=== PATIENT | female | born 1985 | race Hispanic/Latino ===

== ENCOUNTER 2017-10-27 22:18 | Emergency (ER) | payer SELFPAY ==
[2017-10-27 22:44] LABS: Bilirubin Small (Negative); Blood, Urine Moderate (Negative); Clarity Slightly Cloudy (Clear); Glucose, Urine (Dipstick) Negative (Negative); Leukocyte Trace (Negative); Nitrite Negative (Negative); Protein, Urine (Dipstick) 100 mg/dL (Neg-Trace); Specific Gravity, Urine 1.025 (1.002-1.036); Urobilinogen 0.2 mg/dL (0.2-1.0)
[2017-10-27 22:54] LABS: Bacteria/HPF 3+ HPF (None Seen); Hyaline Casts/LPF NONE SEEN LPF (0-3 Hyaline); Squamous Epithelial 0-3 HPF (0-3)
[2017-10-27 23:12] LABS: Pregnancy Test - Urine (BHCG) Negative (Negative); Pregu Control Background? CLEAR/WHITE (CLR/WHITE); Pregu Control Bar Appear? YES (CONTROL BAR); Specific Gravity 1.025 (1.002-1.036)
[2017-10-27 23:39] LABS: #Basophils 0.1 thou/uL (0.0-0.2); #Eosinphils 0.1 thou/uL (0.0-0.7); #Lymphocytes 2.1 thou/uL (1.20-3.40); #Monocytes 0.7 thou/uL (0.11-0.59); #Neutrophils 7.7 thou/uL (1.40-6.50); %Basophils 0.5 % (0.0-1.0); %Lymphocytes 19.8 % (21.0-51.0); %Monocytes 6.4 % (0.0-10.0); %Neutrophils 72.3 % (42.0-75.0); Hemoglobin 14.3 g/dL (12.0-16.0); Mean Corpuscular HGB CONC 35.8 g/dL (32.0-36.0); Mean Corpuscular Hemoglobin 30.8 pg (27.0-31.0); Mean Corpuscular Volume 85.9 fL (78.0-98.0); Mean Platelet Volume 7.6 fL (7.4-10.4); Platelet Count 318 thou/uL (130-400); RBC Distribution Width 10.1 % (11.5-14.5); Red Blood Cell (RBC) Count 4.66 mill/uL (4.20-5.40); White Blood Cell (WBC) Count 10.7 thou/uL (4.8-10.8)
[2017-10-27 23:50] LABS: ALT (SGPT) 29 U/L (8-55); AST (SGOT) 28 U/L (5-34); Albumin 4.3 g/dL (3.5-5.0); Alkaline Phosphatase 69 U/L (40-150); Anion Gap 13 mmol/L (10-20); BUN (Urea Nitrogen) 8 mg/dL (7.0-18.7); Bilirubin, Total 0.7 mg/dL (0.2-1.2); Calc. Creatinine Clearance 0 mL/min (70-130); Calcium 9.6 mg/dL (7.8-10.44); Carbon Dioxide 23 mmol/L (22-29); Chloride 106 mmol/L (98-107); Estimated GFR-MDRD Greater than 90; Globulin 3.1 g/dL (2.4-3.5); Glucose 97 mg/dL (70-105); Lipase 337 U/L (8-78); Potassium 3.3 mmol/L (3.5-5.1); Protein, Total 7.4 g/dL (6.0-8.3); Sodium 139 mmol/L (136-145)
[2017-10-28] MEDS ORDERED: Ondansetron HCl/PF 4 MG/2 ML Vial ONE (00:41)
[2017-10-28] MEDS ORDERED: Morphine 4 MG/ML VIAL ONE (00:41)
[2017-10-28] MEDS ORDERED: cefTRIAXone\\ROCEPHIN 1 GM VIAL ONE (01:16)
[2017-10-28] MEDS ORDERED: Sodium Chloride 0.9% 100 ML ONE (01:18)
--- NOTE | 2017-10-28 10:03 | ULT ---
PRELIMINARY REPORT/[facility]/EMERGENCY AFTER HOURS PROCEDURE: EXAM: US Abdomen Limited, Right Upper Quadrant EXAM DATE/TIME: 10/28/2017 12:09 AM CLINICAL HISTORY: Pain; Other: Ruq pain, elevated lipase TECHNIQUE: Real-time ultrasound of the right upper quadrant with image documentation. COMPARISON: No relevant prior studies available. FINDINGS: Liver: The liver is echogenic compatible with steatosis. There is a slightly hypoechoic mass on the r ight measuring 1.8 x 1.6 x 1.4 cm. No intrahepatic bile duct dilation. Gallbladder: No gallstones, gallbladder wall thickening or pericholecystic fluid. Ultrasound technolo gist noted a sonographic positive Garcia's sign. Common bile duct: Unremarkable as visualized. No stones. No dilation. Pancreas: Unremarkable as visualized. Right kidney: Unremarkable. No stones. No solid mass. No hydronephrosis. IMPRESSION: 1. No sonographic evidence of cholelithiasis or acute cholecystitis. 2. Nonspecific right hepatic mass. ---We are pleased to participate in the care of your patient.--- Thank you for allowing us to participate in the care of your patient. Dictated and Authenticated by: Ileana Telles MD 10/28/2017 12:54 AM Central Time ([place] & [place]) FINAL REPORT RIGHT UPPER QUADRANT ULTRASOUND: Date: 10/28/17 COMPARISON: None. FINDINGS: I agree with the preliminary report provided by Jose. There is some increased echogenicity of the miky er consistent with fatty infiltration. There is an isoechoic mass within the right hepatic lobe measu ring up to 1.8 cm. No additional abnormality is demonstrated. IMPRESSION: I agree with the preliminary report provided. 1. No definite acute abnormality is seen. 2. Fatty infiltration of the liver. 3. Right hepatic lobe mass. This is slightly isoechoic. Differential considerations include FNH, hem angioma or small adenoma. Follow-up MRI of the abdomen with and without protocol utilizing hemangioma protocol is recommended. POS: DAPHNIE
== END 2017-10-28 01:48 | disposition home or self-care (01) ==
LOC: SCSER 22:18
DX: N30.00 Acute cystitis without hematuria (principal); F17.210 Nicotine dependence, cigarettes, uncomplicated
CPT/HCPCS: 76705; 80053; 81003; 81015; 81025; 83690; 85025; 87077; 87086; 96361; 96365; 96375; J0696; J2270; J2405; J7050

== ENCOUNTER 2018-11-26 20:02 | Emergency (ER) | payer SELFPAY ==
[2018-11-26 20:41] LABS: #Basophils 0.1 thou/uL (0.0-0.2); #Eosinphils 0.1 thou/uL (0.0-0.7); #Lymphocytes 1.7 thou/uL (1.20-3.40); #Monocytes 0.8 thou/uL (0.11-0.59); #Neutrophils 6.5 thou/uL (1.40-6.50); %Basophils 0.9 % (0.0-1.0); %Eosinophils 1.4 % (0.0-10.0); %Lymphocytes 18.9 % (21.0-51.0); %Monocytes 8.2 % (0.0-10.0); %Neutrophils 70.5 % (42.0-75.0); Mean Corpuscular HGB CONC 34.4 g/dL (32.0-36.0); Mean Corpuscular Hemoglobin 30.5 pg (27.0-31.0); Mean Corpuscular Volume 88.7 fL (78.0-98.0); Mean Platelet Volume 7.4 fL (7.4-10.4); Platelet Count 320 thou/uL (130-400); RBC Distribution Width 11.7 % (11.5-14.5); Red Blood Cell (RBC) Count 5.26 mill/uL (4.20-5.40); White Blood Cell (WBC) Count 9.2 thou/uL (4.8-10.8)
[2018-11-26] MEDS ORDERED: Fentanyl 100 MCG/2 ML VIAL ONE (20:43)
[2018-11-26] MEDS ORDERED: Ondansetron PF 4 MG/2 ML Vial ONE (20:43)
[2018-11-26 20:51] LABS: BHCG - Serum Negative (NEGATIVE); Pregs Control Background? CLEAR/WHITE (CLR/WHITE); Pregs Control Bar Appear? YES (CONTROL BAR)
[2018-11-26 20:57] LABS: ALT (SGPT) 61 U/L (8-55); AST (SGOT) 34 U/L (5-34); Albumin 4.4 g/dL (3.5-5.0); Alkaline Phosphatase 83 U/L (40-110); Anion Gap 16 mmol/L (10-20); BUN (Urea Nitrogen) 7 mg/dL (7.0-18.7); Bilirubin, Total 0.5 mg/dL (0.2-1.2); Calc. Creatinine Clearance 0 mL/min (70-130); Carbon Dioxide 25 mmol/L (22-29); Chloride 102 mmol/L (98-107); Estimated GFR-MDRD 69; Globulin 3.3 g/dL (2.4-3.5); Glucose 122 mg/dL (70-105); Lipase 87 U/L (8-78); Potassium 3.8 mmol/L (3.5-5.1); Protein, Total 7.7 g/dL (6.0-8.3); Sodium 139 mmol/L (136-145)
[2018-11-26 20:58] LABS: Bilirubin Negative (Negative); Blood, Urine Moderate (Negative); Clarity Clear (Clear); Glucose, Urine (Dipstick) Negative (Negative); Leukocyte Trace (Negative); Nitrite Negative (Negative); Protein, Urine (Dipstick) Trace mg/dL (Neg-Trace); Urobilinogen 0.2 mg/dL (Less than 2)
[2018-11-26 21:01] LABS: Bacteria/HPF Rare-Few HPF (None Seen); Transitional Epithelial 0-3 HPF (None Seen)
[2018-11-26] MEDS ORDERED: Morphine 4 MG/ML VIAL ONE (22:45)
--- NOTE | 2018-11-26 22:53 | ULT ---
ULTRASOUND ABDOMEN LIMITED: (RIGHT UPPER QUADRANT) DATE: 11/26/2018 HISTORY: 33-year-old female with right upper quadrant abdominal pain FINDINGS: Gallbladder:Mildly contracted. Approximately 2 mm gallbladder polyp. No gallstone identified. No mura l thickening or pericholecystic fluid. Common duct: 3 mm. Liver:Diffusely heterogeneous echotexture and echogenicity suggestive of fatty liver. In the right lo be, there is an irregularly shaped, approximately 2 x 1.5 x 1.5 cm lesion with mixed echogenicity. Pancreas:Nonspecific sonographic appearance. Right kidney:No hydronephrosis. IMPRESSION: 1) evidence for hepatic steatosis. 2) a 2 cm mass in the right lobe of the liver. Recommend further evaluation with MRI of the abdomen, with and without contrast, liver mass protocol. 3) no evidence of cholelithiasis or acute cholecystitis. 4) tiny gallbladder polyp.
--- NOTE | 2018-11-27 00:22 | CT ---
CT ABDOMEN WITH CONTRAST CT PELVIS WITH CONTRAST: DATE: 11/27/2018 HISTORY: 33 year old female with right upper quadrant abdominal pain COMPARISON: None available TECHNIQUE: IV injection of iodinated contrast media: administered. Oral contrast media:Not administered FINDINGS: There is a heterogeneous, patchy low attenuation in the left and right lobes of the liver consistent with fatty liver. In hepatic segment 5 of the right lobe, there is an approximately 2 x 2 x 1.7 cm heterogeneously enhancing solid mass. This includes a strong peripheral irregular enhancement. This i s probably a hemangioma, but that is not absolutely certain. There is no intrahepatic biliary ductal dilation. No portal vein thrombosis. The kidneys, abdominal aorta, adrenals, pancreas, spleen, appendix, and urinary bladder, are essentially normal. No evidence of colonic diverticulitis. No small bowel dilation. No pneumoperitoneum or ascites. No pericholecystic edema or fluid. Lung bases a re grossly clear. No pleural effusion. IMPRESSION: 1) hepatic steatosis. 2) solid, heterogeneously enhancing 2 cm mass in the right lobe of liver. Uncertain whether this is a hepatic hemangioma or some other type of neoplasm. As stated in the report of the gallbladder ultrasound today, a multiphase MRI of the abdomen with and without contrast, liver mass protocol, is recommended, on an elective basis.
[2018-11-27] MEDS ORDERED: Ketorolac Tromethamine 30 MG/ML VIAL ONE (00:33)
== END 2018-11-27 00:46 | disposition home or self-care (01) ==
LOC: SCSER 20:02
DX: K76.0 Fatty (change of) liver, not elsewhere classified (principal); R16.0 Hepatomegaly, not elsewhere classified; K85.90 Acute pancreatitis without necrosis or infection, unspecified; F17.210 Nicotine dependence, cigarettes, uncomplicated
CPT/HCPCS: 74177; 76705; 80053; 81003; 81015; 83690; 84703; 85025; 96361; 96374; 96375; J1885; J2270; J2405; J3010

== ENCOUNTER 2019-12-31 05:51 | Inpatient (IN) | payer OTHER ==
[2019-12-31 06:22] VITALS: BMI 27.4
[2019-12-31] MEDS ORDERED: Butorphanol Tartrate 1 MG/ML VIAL SLOW IVP PRN (06:26)
[2019-12-31] MEDS ORDERED: Ondansetron PF 4 MG/2 ML Vial IVP PRN ×2 (06:26→08:58)
[2019-12-31] MEDS ORDERED: hydrALAZINE 20 MG/ML VIAL SLOW IVP PRN ×2 (06:26→10:35)
[2019-12-31] MEDS ORDERED: Bicitra 30 ML UDCUP PO SCH (06:30)
[2019-12-31] MEDS ORDERED: CEFAZOLIN 2 GM in Premix Bag 1 BAG IVPB SCH (06:30)
[2019-12-31 06:50] LABS: Hemoglobin 14.1 g/dL (12.0-16.0); Mean Corpuscular HGB CONC 35.5 g/dL (32.0-36.0); Mean Corpuscular Hemoglobin 31.3 pg (27.0-31.0); Mean Corpuscular Volume 88.4 fL (78.0-98.0); Mean Platelet Volume 8.5 fL (7.4-10.4); Platelet Count 262 thou/uL (130-400); RBC Distribution Width 12.2 % (11.5-14.5); White Blood Cell (WBC) Count 9.4 thou/uL (4.8-10.8)
[2019-12-31] MEDS ORDERED: Oxytocin 10 UNITS/ML VIAL ONE (07:14)
[2019-12-31] MEDS ORDERED: Ondansetron PF 4 MG/2 ML Vial ONE (07:14)
[2019-12-31] MEDS ORDERED: ePHEDrine 50 MG/ML VIAL ONE (07:14)
[2019-12-31] MEDS ORDERED: Morphine PF 10 MG/10 ML VIAL ONE (07:15)
[2019-12-31 07:28] LABS: Amphetamine Not Detected (NotDetected); Barbiturates Screen Not Detected (NotDetected); Benzodiazepine Screen Not Detected (NotDetected); Cocaine Metabolite Screen Detected (NotDetected); Medtox Control Line Valid? VALID (VALID); Medtox Reader # READER 1; Methadone Not Detected (NotDetected); Methamphetamine Not Detected (NotDetected); Opiate Screen Not Detected (NotDetected); Oxycodone Screen Not Detected (NotDetected); Phencyclidine (PCP) Not Detected (NotDetected); THC/Cannabinoid Screen Not Detected (NotDetected); Tricyclic Screen Not Detected (NotDetected)
[2019-12-31 07:29] LABS: HBSAg Index 0.12 S/CO (0-0.99); Hep B Surf Ag Non-Reactive S/CO (NonReactive); Syphilis Antibody Nonreactive (Nonreactive); Syphilis Antibody Index 0.03 S/CO (<1.00 Non-Reactive)
[2019-12-31] MEDS ORDERED: Azithromycin 500 MG VIAL ONE (07:44)
[2019-12-31] MEDS ORDERED: Midazolam HCl 2 mg/2 ml Vial ONE (08:34)
[2019-12-31] MEDS ORDERED: Naloxone HCl 0.4 mg/ml Vial IVP PRN ×2 (08:58)
[2019-12-31] MEDS ORDERED: Ondansetron HCl/PF 4 MG/2 ML Vial IVP PRN (08:58)
[2019-12-31] MEDS ORDERED: Naloxone HCl 0.4 mg/ml Vial IV PRN (08:58)
[2019-12-31] MEDS ORDERED: Promethazine HCl 25 MG/ML VIAL SLOW IVP PRN (08:58)
[2019-12-31] MEDS ORDERED: diphenhydrAMINE 50 MG/ML VIAL IVP PRN (08:58)
[2019-12-31] MEDS ORDERED: Promethazine HCl 25 MG SUPP PR PRN (08:58)
[2019-12-31] MEDS ORDERED: Promethazine HCl 25 MG/ML VIAL IM PRN ×2 (08:58)
[2019-12-31] MEDS ORDERED: Communication Order-Pharmacy FS SCH (09:00)
[2019-12-31] MEDS ORDERED: Ketorolac Tromethamine 30 MG/ML VIAL ONE ×2 (10:30)
[2019-12-31] MEDS: Ketorolac Tromethamine 30 MG/ML VIAL IVP PRN ×3 (10:34→21:42)
[2019-12-31] MEDS ORDERED: Measles/Mumps/Rubella 10 MCG/0.5 ML VIAL SC ONE (10:35)
[2019-12-31] MEDS ORDERED: diphenhydrAMINE 25 MG CAP PO PRN (10:35)
[2019-12-31] MEDS ORDERED: Varicella virus, LIVE 0.5 ML VIAL SC ONE (10:35)
[2019-12-31] MEDS ORDERED: Adacel (T-DAP) 0.5 ML SYRINGE IM ONE (10:35)
[2019-12-31] MEDS ORDERED: Lanolin Ointment 7 GM TUBE TOP PRN (10:35)
[2019-12-31 12:17] LABS: SARS-CoV-2 MS2 Positive; SARS-CoV-2 N Gene Negative; SARS-CoV-2 S Gene Negative; SARS-CoV-2 by NAA Not Detected (NotDetected); SARS-CoV-2 orf1ab Negative
[2019-12-31] MEDS: Ibuprofen 800 MG TAB PO SCH ×2 (13:26→22:28)
[2019-12-31] MEDS ORDERED: NS / Oxytocin 40 units/1000ml 1,000 ML IV PRN (15:24)
[2019-12-31] MEDS ORDERED: Lidocaine 1% (PF) 30 ML VIAL SC PRN (15:24)
[2019-12-31] MEDS ORDERED: Misoprostol 100 MCG TAB VAG SCH (16:00)
[2019-12-31] MEDS: Docusate Calcium (SURFAK) 240 MG CAP PO SCH (20:23)
[2019-12-31] MEDS: HYDROcodone/Acetaminophen 5/325 mg Tablet PO PRN (20:23)
[2020-01-01] MEDS: HYDROcodone/Acetaminophen 5/325 mg Tablet PO PRN ×2 (05:00→11:09)
[2020-01-01] MEDS: Ibuprofen 800 MG TAB PO SCH ×3 (05:00→22:08)
[2020-01-01 06:09] LABS: Hemoglobin 10.7 g/dL (12.0-16.0); Mean Corpuscular HGB CONC 34.4 g/dL (32.0-36.0); Mean Corpuscular Hemoglobin 31.1 pg (27.0-31.0); Mean Corpuscular Volume 90.3 fL (78.0-98.0); Mean Platelet Volume 8.4 fL (7.4-10.4); Platelet Count 186 thou/uL (130-400); RBC Distribution Width 12.3 % (11.5-14.5); Red Blood Cell (RBC) Count 3.45 mill/uL (4.20-5.40)
[2020-01-01] MEDS: Prenatal Vitamin 1 TAB PO SCH (11:09)
[2020-01-01] MEDS: Docusate Calcium (SURFAK) 240 MG CAP PO SCH ×2 (11:10→22:08)
[2020-01-01] MEDS: Simethicone Chewable 80 MG TAB PO PRN (11:10)
[2020-01-02] MEDS: HYDROcodone/Acetaminophen 5/325 mg Tablet PO PRN ×2 (02:03→08:04)
[2020-01-02] MEDS: Ibuprofen 800 MG TAB PO SCH ×3 (05:07→21:43)
[2020-01-02] MEDS: Simethicone Chewable 80 MG TAB PO PRN (08:03)
[2020-01-02] MEDS: Prenatal Vitamin 1 TAB PO SCH (08:05)
[2020-01-02] MEDS: Docusate Calcium (SURFAK) 240 MG CAP PO SCH ×2 (08:05→21:43)
--- NOTE | 2020-01-02 14:04 | PDOC.PP ---
Post Progress Note Post Day #: 1 PO intake tolerated: yes Flatus: yes Ambulation: yes Vital Signs (12 hours) Temp Pulse Resp BP Pulse Ox 01/02/20 07:45 98.0 F 80 20 97/58 L 97 01/02/20 05:24 97.8 F 87 18 120/71 Weight Weight 150 lb - Physical Examination General: NAD Cardiovascular: no m/r/g, RRR Respiratory: clear to auscultation bilaterally, non-labored breathing Abdominal: + bowel sounds, lochia, no distention Extremities: negative homans (B) Skin: CS incision dry & intact, no rash Neurological: no gross focal deficits Psychiatric: A&Ox3, normal affect Result Diagrams: 01/01/20 05:35 Additional Labs: Post Labs Hep Bs Antigen Non-Reactive S/CO (NonReactive) 12/31/19 06:31 Blood Type O POSITIVE 12/31/19 07:29
--- NOTE | 2020-01-02 14:47 | PDOC.LDHP ---
Labor and Delivery H&P HPI: 34 y/o at 38 weeks 0 days, presents with SROM, and hx of 2 previous C- sections. Patient appeared unusually anxious on arrival, UDS was positive for Cocaine. Current gestational age (weeks): 38 Due date: 01/14/20 Grav: 4 Para: 2 Abnormal US findings: No Current medications: pre- vitamins Previous surgical history: low tranverse CS Allergies/Adverse Reactions: Allergies Allergy/AdvReac Type Severity Reaction Status Date / Time No Known Allergies Allergy Verified 12/31/19 06:14 Social history: drug use - Physical Exam Vital signs reviewed and normal: yes General: NAD, resting Heart: RRR Lungs: CTAB Abdomen: gravid Extremeties: no edema FHT: category 1 - Assessment L&D Assessment: term rupture in membranes - Plan Plan: admit to L&D, to OR for section
--- NOTE | 2020-01-02 20:00 | PDOC.PP ---
Post Progress Note Post Day #: 2 PO intake tolerated: yes Flatus: yes Ambulation: yes Vital Signs (12 hours) Temp Pulse Resp BP Pulse Ox 01/02/20 17:03 98.9 F 73 12 100/50 L 98 Weight Weight 150 lb - Physical Examination General: NAD Cardiovascular: no m/r/g, RRR Respiratory: clear to auscultation bilaterally, non-labored breathing Abdominal: + bowel sounds, lochia, no distention Extremities: negative homans (B) Skin: CS incision dry & intact, no rash Neurological: no gross focal deficits Psychiatric: A&Ox3, normal affect Result Diagrams: 01/01/20 05:35 Additional Labs: Post Labs Hep Bs Antigen Non-Reactive S/CO (NonReactive) 12/31/19 06:31 Blood Type O POSITIVE 12/31/19 07:29
--- NOTE | 2020-01-03 00:34 | OP ---
DATE OF PROCEDURE: 12/31/2019 TIME OF SERVICE: At 8:16 [place] daylight savings time. PREOPERATIVE DIAGNOSES: Intrauterine at 38 weeks and 0 days with a spontaneous rupture of membranes, history of 2 previous sections, and admission drug screen positive for cocaine. POSTOPERATIVE DIAGNOSES: Intrauterine at 38 weeks and 0 days with a spontaneous rupture of membranes, history of 2 previous sections, and admission drug screen positive for cocaine. PROCEDURE: Repeat low transverse section. FINDINGS: Viable female infant, weighing 2359 g or 5 pounds 3 ounces, Apgars 8 and 9. QUANTITATIVE BLOOD LOSS: 340 mL. COMPLICATIONS: None. DETAILS OF THE PROCEDURE: After obtaining consent, the patient was taken back to the operating room where her regional anesthesia was found to be adequate. The patient was placed in the dorsal supine position with leftward tilt. The skin was tested for adequate anesthesia and a scalpel was then used to make a Pfannenstiel incision which was carried down to the underlying rectus fascia. The fascia was incised in the midline and the fascial incision extended in both lateral directions. 2 Osmani clamps were placed at the superior aspect of the fascia and the rectus muscles were dissected away. Similarly, 2 Osmani clamps were placed at the inferior aspect of the incision and rectus muscles dissected away. The rectus muscles were then in the midline and the peritoneum identified and entered bluntly with the hemostat. The peritoneal incision was then extended superiorly and inferiorly. A bladder blade was then placed within the peritoneal cavity and a bladder flap was made with Metzenbaum scissors and pickups with teeth. The bladder blade was replaced. A clean scalpel was used to make a uterine incision. The baby was then delivered with gentle fundal pressure without difficulty. The baby's mouth and nose were bulb suctioned and the cord clamped and cut. The baby was then handed to waiting attendants. Cord blood and cord gases were obtained. The placenta was manually extracted. The uterus exteriorized, cleared of all clots and debris, and repaired with #1 chromic suture in a running, locked fashion. Hemostasis at the uterine wall was excellent. The bladder flap was repaired with 2-0 Monocryl in a running fashion. The tubes and ovaries were inspected and appeared normal. The posterior cul-de-sac was blotted dry and the uterus was replaced within the abdomen. Again, the uterus was firm, and hemostasis was excellent at the uterine repair. Peritoneum was closed with 2-0 chromic suture in a running fashion. Fascia was reapproximated with 0 Vicryl, using 2 running sutures tied in the midline. The subcutaneous tissue was irrigated. Hemostasis was assured and the skin closed with 3-0 Monocryl and Dermabond adhesive. The patient was then transferred to the ambulatory bed and taken to recovery in stable condition. Job ID: [id number]
[2020-01-03] MEDS: Ibuprofen 800 MG TAB PO SCH (05:55)
[2020-01-03 08:17] VITALS: BP 100/58; TEMP 98
== END 2020-01-03 09:15 | disposition home or self-care (01) | DRG 787 ==
LOC: L&D/OP 05:51 → L&D 07:28 → 3SW 11:04
PROVIDERS: ADMIT Obstetrics & Gynecology; ATTEND Obstetrics & Gynecology
PROC: 10D00Z2 Extraction of Products of Conception, Extraperitoneal, Open Approach (ICD-10-PCS; principal; 2019-12-31)
DX: O34.219 Maternal care for unspecified type scar from previous cesarean delivery (principal); O99.324 Drug use complicating childbirth; Z3A.38 38 weeks gestation of pregnancy; Z37.0 Single live birth; F14.90 Cocaine use, unspecified, uncomplicated; Z20.828 Contact with and (suspected) exposure to other viral communicable diseases
CPT/HCPCS: 36415; 51702; 80306; 85027; 86780; 86850; 86900; 86901; 87340; 87635; 90715; 99285; J0456; J0690; J1885; J2250; J2270; J2405; J3490; U0003

== ENCOUNTER 2021-06-30 15:09 | Emergency (ER) | payer OTHER ==
[2021-06-30] MEDS ORDERED: Ondansetron PF 4 MG/2 ML Vial ONE (15:49)
[2021-06-30] MEDS ORDERED: Morphine 4 MG/ML VIAL ONE ×3 (15:49→18:34)
[2021-06-30] MEDS ORDERED: Boostrix 0.5 ML (Tdap) VIAL ONE (18:03)
[2021-06-30] MEDS ORDERED: Ketorolac Tromethamine 30 MG/ML VIAL ONE (18:45)
== END 2021-06-30 19:23 | disposition home or self-care (01) ==
LOC: ERS 15:09
DX: S82.64XA Nondisplaced fracture of lateral malleolus of right fibula, initial encounter for closed fracture (principal); S92.001A Unspecified fracture of right calcaneus, initial encounter for closed fracture; F17.210 Nicotine dependence, cigarettes, uncomplicated; X58.XXXA Exposure to other specified factors, initial encounter
CPT/HCPCS: 29515; 90471; 90715; 96374; 96375; 96376; J1885; J2270; J2405